=== PATIENT | male | born 1955 | race Caucasian/White ===

== ENCOUNTER 2016-12-04 14:49 | Emergency (ER) | payer MEDICAID ==
[~2016-12-04] VITALS: Wt 105.5 kg
[2016-12-04] MEDS ORDERED: KETOROLAC 30 MG INJ IM STA (16:17)
--- NOTE | 2016-12-04 16:54 | RADRPT ---
PROCEDURE: XR Cervical Spine. CLINICAL INDICATION: Neck pain TECHNIQUE: AP and lateral views of the cervical spine were obtained. COMPARISON: None available FINDINGS: Mineralization is within normal limits. No fracture or osseous lesion is identified. Vertebral bod ies are normal in height. Cervical lordosis is straightened. No vertebral subluxation is seen. Deg enerative narrowing at the C5-6 and C6-7 with anterior spondylosis is present. The remaining interv ertebral discs are normal in height. Facet joints appear mildly degenerated right side greater than left at C3-4, C4-5 and C5-6. Prevertebral soft tissues, predental space and atlantoaxial joint are unremarkable. RPTAT:HJJR IMPRESSION: 1. Degenerative disk narrowing at C5-6 and C6-7. 2. Right greater than left facet arthropathy at C3-4, C4-5 and C5-6. 3. Straightening of the normal cervical lordosis may reflect muscle spasm.. Physician Isatu Date Time Electronically viewed and signed by Physician Isatu on 12/04/2016 16:54 /
--- NOTE | 2016-12-04 17:03 | ERD ---
ER Documentation Chief Complaint Date/Time DATE: 12/04/16 TIME: 17:02 Chief Complaint neck pain worse with movement 11/28 HPI This is a 61-year-old male who presents to the emergency department today complaining of neck pain for the past 6 days. States he woke up last Tuesday with neck pain. States it was intermittent and now worse for the past 2 days. States he has taken Tylenol and Lyrica. States he was given Lyrica one time for some pain complaint. States he has a history of diabetes. Denies any fevers or chills, sore throat. Denies any headache, dizziness, blurred vision. ROS All systems reviewed and are negative except as per history of present illness. Medications Home Meds Active Scripts Cyclobenzaprine Hcl* (Cyclobenzaprine Hcl*) 10 Mg Tablet, 10 MG PO QHS, #7 TAB Prov:PRAKASH RODRÍGUEZ PA-C 12/04/16 Naproxen* (Naprosyn*) 500 Mg Tablet, 500 MG PO BID Y for PAIN AND/OR INFLAMMATION, #30 TAB Prov:PRAKASH RODRÍGUEZ PA-C 12/04/16 Tramadol HCl (Tramadol HCl) 50 Mg Tablet, 50 MG PO Q4 Y for PAIN, #20 TAB Prov:PRAKASH RODRÍGUEZ PA-C 12/04/16 Allergies Allergies: Coded Allergies: No Known Allergy (Unverified , 12/04/16) PMhx/Soc Hx Alcohol Use: No Hx Substance Use: No Hx Tobacco Use: No Physical Exam Vitals Vital Signs Date Time Temp Pulse Resp B/P Pulse Ox O2 Delivery O2 Flow Rate FiO2 12/04/16 17:30 78 16 142/78 12/04/16 15:40 105 177/84 12/04/16 15:11 98.3 97 20 192/89 96 Physical Exam Const: No acute distress Head: Atraumatic Eyes: Normal Conjunctiva ENT: Ears TMs normal. Nose no drainage. Throat erythema no exudate no lymphadenopathy. Neck: Full range of motion..~ No meningismus. Mild midline tenderness with bilateral paraspinal tenderness. Resp: Clear to auscultation bilaterally Cardio: Regular rate and rhythm, no murmurs Skin: No petechiae or rashes Ext: No cyanosis, or edema. Full active range of motion bilateral arms. Neur: Awake and alert Psych: Normal Mood and Affect Results 24 hrs Current Medications Medications (Trade) Dose Ordered Sig/Mali Route PRN Reason Start Time Stop Time Status Last Admin Dose Admin Ketorolac Tromethamine (Toradol) 30 mg ONCE STAT IM 12/04/16 16:17 12/04/16 16:19 DC 12/04/16 16:21 DIAGNOSTIC IMAGING REPORT Patient: ESTEPHANIA PLATA : 1955 Age: 61 Sex: M MR #: [id number] DOS: 12/04/16 0000 Ordering MD: PRAKASH RODRÍGUEZ PA-C Location: [facility] Room/Bed: PROCEDURE: XR Cervical Spine. CLINICAL INDICATION: Neck pain TECHNIQUE: AP and lateral views of the cervical spine were obtained. COMPARISON: None available FINDINGS: Mineralization is within normal limits. No fracture or osseous lesion is identified. Vertebral bodies are normal in height. Cervical lordosis is straightened. No vertebral subluxation is seen. Degenerative narrowing at the C5-6 and C6-7 with anterior spondylosis is present. The remaining intervertebral discs are normal in height. Facet joints appear mildly degenerated right side greater than left at C3-4, C4-5 and C5-6. Prevertebral soft tissues, predental space and atlantoaxial joint are unremarkable. RPTAT:HJJR IMPRESSION: 1. Degenerative disk narrowing at C5-6 and C6-7. 2. Right greater than left facet arthropathy at C3-4, C4-5 and C5-6. 3. Straightening of the normal cervical lordosis may reflect muscle spasm.. Physician Isatu Date Time Electronically viewed and signed by Physician Isatu on 12/04/2016 16:54 JR/ CC: PRAKASH RODRÍGUEZ PA-C Procedures/[facility] This 61-year-old male presents emergency department today complaining of neck pain for the past week that is worse over the past couple of days. Patient is complaining of bilateral paraspinal tenderness he did have some midline tenderness and pain with movement and therefore did obtain images per Images of the cervical spine show degenerative disc narrowing at C5 and 6 and C6 and 7 right greater than left facet arthropathy at C3 and 4, C4 and 5 and C5 and 6. There is straightening of the normal cervical lordosis that may reflect muscle spasm. This is likely the source of the patient's pain. Low suspicion for acute fracture dislocation. Low suspicion for infectious cause of neck pain such as peritonsillar abscess, strep pharyngitis or retropharyngeal abscess. Low suspicion for torticollis. Patient was given a Toradol injection. He will be given a prescription for tramadol, Naprosyn and Flexeril for home. I have explained to him that he does need to see his primary care physician for referral to clinical trials specialist. Patient understood. At this time the patient is stable for discharge and outpatient management. Patient should follow up with their PCP in the next 1-2 days. They may return to the emergency department sooner for any persistent or worsening of symptoms. Patient understood and agreed with the plan. Departure Diagnosis: Primary Impression: Neck pain Condition: PRAKASH Flynn PA-C Dec 04, 2016 17:03
[2016-12-04] MEDS ORDERED: NAPR-260 PO (17:16)
[2016-12-04] MEDS ORDERED: TRAM50TA2 PO (17:16)
[2016-12-04] MEDS ORDERED: CYCL-319 PO (17:16)
[2016-12-04 17:30] VITALS: BP 142/78; PULSE 78; RESP 16
== END 2016-12-04 17:32 | disposition home or self-care (01) ==
LOC: FTE 14:49
DX: M54.2 Cervicalgia (principal)
CPT/HCPCS: 72040; 96372; J1885; Z7502